=== PATIENT | male | born 2005 | race Caucasian/White ===

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

== ENCOUNTER → 2023-12-22 12:20 | Outpatient (BNVA) | payer OTHER, SELFPAY | PROVIDERS: Visit Provider Registered Nurse Neonatal Intensive Care | DX: S99.922A Unspecified injury of left foot, initial encounter (principal); Y29.XXXA Contact with blunt object, undetermined intent, initial encounter; M79.672 Pain in left foot | CPT/HCPCS: 73630 ==

== ENCOUNTER → 2024-04-17 14:58 | Outpatient (BNVA) | payer OTHER, SELFPAY | PROVIDERS: PCP Family Medicine; Visit Provider Family Medicine | DX: E16.2 Hypoglycemia, unspecified (principal); R03.0 Elevated blood-pressure reading, without diagnosis of hypertension | CPT/HCPCS: 80053; 83036; 84439; 84443; 85025 ==

== ENCOUNTER 2024-05-20 19:16 | Emergency (ER) | payer OTHER, SELFPAY ==
[2024-05-20 19:30] VITALS: BP 115/68; PULSE 101; RESP 17; TEMP 36.9; O2SAT 97; BMI 26.4
[2024-05-20 19:50] VITALS: BP 143/82; PULSE 99; RESP 18; O2SAT 99
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
[2024-05-20 21:21] VITALS: BP 136/69; PULSE 78; O2SAT 98
== END 2024-05-20 21:22 | disposition home or self-care (01) ==
PROVIDERS: Emergency Provider Physician Assistant; PCP Family Medicine
DX: S39.012A Strain of muscle, fascia and tendon of lower back, initial encounter (principal); S20.212A Contusion of left front wall of thorax, initial encounter; S60.221A Contusion of right hand, initial encounter; S40.012A Contusion of left shoulder, initial encounter; F17.290 Nicotine dependence, other tobacco product, uncomplicated; V89.2XXA Person injured in unspecified motor-vehicle accident, traffic, initial encounter
CPT/HCPCS: 71100; 72100; 73030; 73130; 99284